=== PATIENT | female | born 1975 | race Hispanic/Latino ===

== ENCOUNTER → 2019-04-23 | Day surgery (SDC) | payer OTHER ==
[~2019-04-23] MED LIST: CALCIUM PO; CASCARA SAGRADA1 ML PO; COQ-1030 MG PO; FENTANYL CITRATE/PF 100MCG/2 ML INJ ONE; MIDAZOLAM HCL 2 MG/2 ML VIAL ONE; OMEGA 3 FISH O1 EACH PO; PROPOFOL IV EMULSION 10 MG/ML 50 ML VIAL ONE; VITAMIN D PO; WOMEN'S DAILY1 EAC2 PO; collagen PO
--- OUTSIDE RECORDS SUMMARY | 2019-04-23 09:05 | XMS REPORT ---
Author Author [facility] Address Unknown Phone Unavailable Care Team Providers Care Health Information Provider Name Role Phone Unavailable Unavailable Problems This patient has no known problems. Allergies, Adverse Reactions, Alerts This patient has no known allergies or adverse reactions. Medications This patient has no known medications. Results Test Description Test Time Test Comments Text Results Atomic Results Result Comments US, ABDOMINAL, COMPLETE 2018-08-27 11:37:00 Reason for Exam:->Unspecified abdominal pain FINAL REPORT TECHNIQUE: Grayscale ultrasound of the abdomen. INDICATION: 42-year-old woman with abdominal pain. COMPARISON: None. FINDINGS: MIDLINE VASCULATURE: The visualized inferior vena cava is patent. Portal vein is patent and measures 1.3 cm in diameter. The maximum visualized aortic diameter is 1.4 cm. LIVER: The liver is normal in size. Increased echogenicity of the liver, consistent with hepatic steatosis. Anechoic cyst in the left hepatic lobe measures 1.1 x 0.7 x 1 cm. 1.4 x 1.4 x 1.4 cm cyst in the right hepatic lobe with thin internal septation. BILIARY:Gallbladder: The gallbladder is contracted, limiting evaluation of its wall. No gallstones or sludge. No pericholecystic fluid. Negative sonographic Peguero sign.Common bile duct measures 0.5 cm, within normal limits. No intrahepatic biliary ductal dilatation. PANCREAS: Visualized portions of the pancreas are unremarkable. SPLEEN: No splenomegaly. PERITONEUM: No free fluid. KIDNEYS: The right kidney measures 13.6 cm in length and the left kidney measures 15.2 cm in length. No hydronephrosis. No sonographically evident solid mass lesion. Multiple bilateral renal cysts measure up to 3 x 2.4 x 2.9 cm on the right and 2.9 x 3 x 3.8 cm on the left. IMPRESSION:Hepatic steatosis. Hepatic and bilateral renal cysts. Contracted gallbladder. Signed: Yesi Medinaeport Verified Date/Time: 08/27/2018 11:37:49 Reading Location: [facility] Diagnostic Imaging Reading Room - [facility] [id number]
[2019-04-23 12:15] VITALS: BP 112/70
== END | disposition home or self-care (01) ==
LOC: OR 09:03
PROVIDERS: ATTEND Internal Medicine Gastroenterology
DX: K29.50 Unspecified chronic gastritis without bleeding (principal); D12.3 Benign neoplasm of transverse colon; K63.89 Other specified diseases of intestine; K44.9 Diaphragmatic hernia without obstruction or gangrene; K57.30 Diverticulosis of large intestine without perforation or abscess without bleeding; B96.81 Helicobacter pylori [H. pylori] as the cause of diseases classified elsewhere; K21.9 Gastro-esophageal reflux disease without esophagitis; K59.09 Other constipation; K64.8 Other hemorrhoids; D72.820 Lymphocytosis (symptomatic)
CPT/HCPCS: 43239; 45380; 45384; 81025; J2250; J2704; J3010; 45378